=== PATIENT | female | born 1975 | race Caucasian/White ===

== ENCOUNTER 2016-07-17 17:34 | Emergency (ER) | payer MEDICAID ==
[~2016-07-17] VITALS: Ht 152.4 cm; Wt 73.0 kg
[~2016-07-17 17:34] MED LIST: FISH OIL PO
[2016-07-17] MEDS ORDERED: ALBUTEROL (0.083%) 2.5MG/3ML NEB HHN NR (22:17)
[2016-07-17] MEDS ORDERED: IPRATROPIUM BROMIDE (0.02%) 0.5MG/2.5ML NEB HHN NR (22:17)
[2016-07-17] MEDS ORDERED: PREDNISONE 20MG TABLET PO NR (22:17)
[2016-07-17] MEDS ORDERED: ALBUTEROL (0.083%) 2.5MG/3ML NEB HHN STA (23:23)
[2016-07-17] MEDS ORDERED: IPRATROPIUM BROMIDE (0.02%) 0.5MG/2.5ML NEB HHN STA (23:23)
[2016-07-17 23:45] VITALS: BP 115/66
== END 2016-07-18 01:32 | disposition home or self-care (01) ==
LOC: ER 20:50
DX: J45.901 Unspecified asthma with (acute) exacerbation (principal)
CPT/HCPCS: 71010; 81025; 94640; 99284; J7512; J7611; Z7610

== ENCOUNTER 2017-01-03 07:34 | Emergency (ER) | payer MEDICAID ==
[~2017-01-03] VITALS: Ht 167.6 cm; Wt 95.0 kg
[2017-01-03 11:35] VITALS: BP 123/86
== END 2017-01-03 11:55 | disposition home or self-care (01) ==
LOC: ER 09:10
DX: M79.1 Myalgia (principal)
CPT/HCPCS: 71010; 81025; 93005; 99284; Z7610

== ENCOUNTER 2023-08-15 17:44 | Emergency (ER) | payer MEDICAID, OTHER ==
[~2023-08-15] VITALS: Ht 162.6 cm; Wt 73.0 kg
[2023-08-15 17:46] VITALS: BP 161/96; TEMP 98.5
[2023-08-15] MEDS ORDERED: PREDNISONE 20MG TABLET PO STA (18:56)
[2023-08-15] MEDS ORDERED: IPRATROPIUM BROMIDE (0.02%) 0.5MG/2.5ML NEB HHN STA (18:56)
[2023-08-15] MEDS ORDERED: ALBUTEROL (0.083%) 2.5MG/3ML NEB HHN STA (18:56)
[2023-08-15] MEDS ORDERED: P50 MT (20:57)
[2023-08-15] MEDS ORDERED: IPRATROPIUM BROMIDE (0.02%) 0.5MG/2.5ML NEB HHN NR (21:00)
[2023-08-15] MEDS ORDERED: ALBUTEROL (0.083%) 2.5MG/3ML NEB HHN NR (21:00)
[2023-08-15] MEDS: PREDNISONE 20MG TABLET PO NR (21:11)
[2023-08-15 22:36] VITALS: PULSE 85; RESP 20; O2SAT 95
== END 2023-08-15 22:36 | disposition home or self-care (01) ==
LOC: ER 17:44
DX: J45.901 Unspecified asthma with (acute) exacerbation (principal)
CPT/HCPCS: 71045; 94640; 99283; J7512; Z7610 ×3

== ENCOUNTER 2024-01-09 08:28 | Emergency (ER) | payer MEDICAID, OTHER ==
[~2024-01-09] VITALS: Ht 157.5 cm; Wt 90.0 kg
[~2024-01-09 08:28] MED LIST changes: +P50 MT
[2024-01-09 08:39] VITALS: O2SAT 100
[2024-01-09] MEDS ORDERED: DIPHENHYDRAMINE 50MG CAPSULE PO ONE (09:30)
[2024-01-09] MEDS ORDERED: TETANUS, DIPHTHERIA, PERTUSSIS VAC/PF 0.5ML (>10YR OLD) IM ONE (09:30)
[2024-01-09] MEDS: PREDNISONE 20MG TABLET PO ONE (10:40)
[2024-01-09] MEDS: IBUPROFEN 600MG TABLET PO ONE (10:40)
[2024-01-09] MEDS: FAMOTIDINE 20MG TABLET PO ONE (10:40)
[2024-01-09] MEDS: DIPHENHYDRAMINE 25MG CAPSULE PO NR (10:40)
[2024-01-09] MEDS ORDERED: TOPUD MT (11:09)
[2024-01-09] MEDS ORDERED: DIPH25CA83 MT (11:09)
[2024-01-09] MEDS ORDERED: FAMO-135 MT (11:09)
[2024-01-09] MEDS ORDERED: PRED-431 MT (11:09)
[2024-01-09] MEDS: TETANUS, DIPHTHERIA, PERTUSSIS VAC/PF 0.5ML (>10YR OLD) IM ONE (11:24)
[2024-01-09 11:26] VITALS: BP 148/78; PULSE 74; RESP 16; TEMP 36.66960; O2SAT 100
== END 2024-01-09 13:48 | disposition home or self-care (01) ==
LOC: ER 09:05
DX: L29.9 Pruritus, unspecified (principal); J45.909 Unspecified asthma, uncomplicated; Z79.899 Other long term (current) drug therapy
CPT/HCPCS: 99284; 90715; 90471; Q0163; J7512